=== PATIENT | male | born 1935 | race Caucasian/White ===

== ENCOUNTER 2021-02-25 16:25 | Emergency (ER) | payer MEDICARE, OTHER, SELFPAY ==
--- NOTE | ~2021-02-25 | XR_ITS ---
EXAMINATION: XR hip LT min 3V w AP pelvis EXAM DATE: 02/25/2021 17:01 INDICATION: fall, left hip pain, cannot bear weight. TECHNIQUE: Left hip frontal, crosstable lateral and 'frog-leg' projections for interpretation. Fronta l projection pelvis. There is no prior study for comparison. FINDINGS: Bones are osteopenic. Please note that osteopenia limits sensitivity for detecting fractur es by radiographs. There are no acute pelvic or left hip fractures or dislocations identified. The re is no subcutaneous gas. The soft tissue is unremarkable. There are no radiopaque foreign bodies . IMPRESSION: Osteopenia. No acute fracture suspected. Follow-up CT without contrast can be obtained if symptoms persist. Reviewed, dictated and finalized at location [facility] IMPRESSION: Osteopenia. No acute fracture suspected. Follow-up CT without contr ast can be obtained if symptoms persist.
--- NOTE | ~2021-02-25 | XR_ITS ---
EXAMINATION: XR chest 2V EXAM DATE: 02/25/2021 17:01 INDICATION: covid positive, lung sounds diminished left side. TECHNIQUE: Frontal and lateral projections of the chest obtained and reviewed. There is no prior vivi dy for comparison. FINDINGS: There is small to moderate amount of patchy ill-defined bilateral airspace disease. No pne umothorax or pleural effusion. The cardiomediastinal silhouette is prominent but magnified on this AP technique. There are bony degenerative changes. IMPRESSION: Small to moderate amount of ill-defined acute airspace disease. Reviewed, dictated and finalized at location A. RD [facility]
--- NOTE | 2021-02-25 16:27 | ED.FALL ---
HPI - Fall General Chief Complaint: Fall Stated Complaint: Left hip pain. Time Seen by Provider: 02/25/21 16:28 Source: patient and RN notes reviewed History of Present Illness HPI Narrative: Patient is an 85-year-old male who presents the urgent care with his daughter with complaints of left hip pain after a fall at 7 AM this morning. Daughter states that he was diagnosed with Covid approximately 5 days ago and she has been staying with him the last few days. States that he got up before her, attempting to go to the bathroom and fell. Daughter states that he did lose consciousness very briefly but was aroused quickly. Patient did hit his head but is on no blood thinners. Denies of any confusion, headache since the fall. Denies of any nausea or vomiting. Daughter states that he had the antibody infusion for Covid yesterday and has been on ivermectin and azithromycin. Patient has also been using 2L of nasal oxygen at home. Patient currently denies of any shortness of breath or chest pain. Denies of any headache. States that his pain is worsened with weightbearing. No other acute complaints. No acute distress noted. Patient and daughter aware of the plan of care. Some parts of this dictation were generated by voice recognition software and may contain typographical and/or grammatical inaccuracies. Related Data Home Medications Medication Instructions Recorded Confirmed lovastatin mg 02/25/21 methimazole 02/25/21 Allergies Allergy/AdvReac Type Severity Reaction Status Date / Time No Known Allergies Allergy Verified 02/25/21 16:42 Review of Systems Review of Systems: CONSTITUTIONAL: Denies fever, chills, or sweats. EYES: Denies visual changes, redness, or discharge. ENT: Denies rhinorrhea, congestion, sore throat, or otalgia. CARDIOVASCULAR: Denies chest pain, palpitations, or edema. RESPIRATORY: Reports a mild cough GASTROINTESTINAL: Denies abdominal pain, nausea, vomiting, or diarrhea. GENITOURINARY: Denies dysuria or hematuria. SKIN: Denies rash or itching. MUSCULOSKELETAL: Reports of left hip pain NEUROLOGIC: Denies headache, numbness, or weakness. All other systems reviewed are negative, except as documented in HPI. PMFSH Comments At the time of my signature, I reviewed and agree with the nursing past medical, surgical, social, and family history. There is no relevant family history pertinent to the patient complaint. Exam Narrative: GENERAL: This is a well-nourished, well-developed patient, in no apparent distress. HEAD: normocephalic, atraumatic. EYES: PERRL. Sclera clear/white. Vision is grossly intact. EARS: External ears normal NOSE: External nose normal with no obvious nasal discharge, nares without redness, no rhinorrhea. THROAT: Mucous membranes moist NECK: Neck supple CARDIOVASCULAR: Regular rate and rhythm RESPIRATORY: Clear to auscultation. Slightly diminished left upper lung sounds without crackles or wheezes SKIN: 0.5 cm abrasion to the left forehead. Warm, intact with no suspicious lesions or rash, good texture and turgor. NEURO: awake, alert, and oriented to person, place and time. There were no obvious focal neurologic abnormalities. EXTREMITIES: No shortening, deformity noted to the left lower extremity. Mild ecchymosis noted to the lateral left hip with mild to moderate tenderness to the anterior left pelvic region. Very mild edema noted to the lateral left hip. Range of motion to the left hip within normal limits with exacerbated pain on weightbearing. Mild exacerbated pain with external rotation. Positive strong left pedal pulse with capillary refill less than 2 seconds. Course Course Level of Care: Express Care Visit Vital Signs Vital signs: Vital Signs Temperature 97.2 F L 02/25/21 17:03 Pulse Rate 132 H 02/25/21 17:03 Respiratory Rate 20 02/25/21 17:03 Blood Pressure 115/90 02/25/21 17:03 Pulse Oximetry 100 02/25/21 17:03 Temperature 97.2 F L 02/25/21
[2021-02-25 17:03] VITALS: BP 115/90; PULSE 132; RESP 20; TEMP 36.2; O2SAT 100
== END 2021-02-25 17:28 | disposition home or self-care (01) ==
PROVIDERS: Emergency Provider Nurse Practitioner Family; PCP Internal Medicine Geriatric Medicine
DX: U07.1 COVID-19 (principal); M25.552 Pain in left hip; W19.XXXA Unspecified fall, initial encounter; E05.90 Thyrotoxicosis, unspecified without thyrotoxic crisis or storm
CPT/HCPCS: 71046; 73502; 99214; G0463